=== PATIENT | male | born 1955 | race Caucasian/White ===

== ENCOUNTER 2017-04-21 12:26 | Inpatient (IN) | payer MEDICARE, OTHER ==
[2017-04-21] VITALS (9 sets, daily range): BP systolic 84–133; BP diastolic 52–69
[~2017-04-21] VITALS: Ht 170.2 cm; Wt 70.4 kg
[2017-04-21] MEDS: ipratropium/albuterol 3ml nebule NEB SCH ×3 (14:59→23:11)
[2017-04-21] MEDS: midazolam 100mg in NS 100ml 100 ML IV PRN (15:22)
[2017-04-21] MEDS: FENTANYL-0.9 % NACL/PF 100 ML IV PRN (15:22)
[2017-04-21 15:55] LABS: ABG BASE EXCESS 4.3 mmol/L (-2.0-3.0); ABG OXYGEN SATURATION 95.2 % (95-98); ABG PCO2 (T) 50.2 mmHg (35.0-48.0); ABG PH (T) 7.397 (7.350-7.450); ALLEN'S TEST Positive; FCOHb 0.3 % (0.5-1.5); FMetHb 0.1 % (0.3-1.12); FO2Hb 94.8 % (94-100); MINUTE VOLUME 11 L/min; PATIENT TEMPERATURE 37.5; PEEP 8 cm H2O; RESPIRATORY RATE 18 b/min; RESPIRATORY RATE (OBSERVED) 18 b/min; TIDAL VOLUME 550 mL; TOTAL HEMOGLOBIN 13.5 G/dl (14.0-18.0)
[2017-04-21] MEDS ORDERED: potassium Cl 20 mEq SR tablet PO PRN (16:00)
[2017-04-21] MEDS ORDERED: magnesium hydroxide 30ml (MOM) UD suspension PO PRN (16:00)
[2017-04-21] MEDS ORDERED: ondansetron/PF 4mg/2ml inj IV PRN (16:00)
[2017-04-21] MEDS ORDERED: morphine 2 MG/ML inj. syringe IV PRN ×2 (16:00)
[2017-04-21] MEDS ORDERED: Neutra Phos packet PO PRN (16:00)
[2017-04-21] MEDS ORDERED: magnesium 4gm in 100ml NS 100 ML IV PRN (16:00)
[2017-04-21] MEDS ORDERED: sodium phosphate inj. 15 MMOL in dextrose 5%-water 150 ML IV PRN (16:00)
[2017-04-21] MEDS ORDERED: magnesium Cl slow-release 64mg tablet PO PRN (16:00)
[2017-04-21] MEDS ORDERED: sodium phosphate inj. 30 MMOL in dextrose 5%-water 250 ML IV PRN (16:00)
[2017-04-21] MEDS ORDERED: magnesium 2GM in 50ml NS 50 ML IV PRN (16:00)
[2017-04-21] MEDS ORDERED: ipratropium/albuterol 3ml nebule NEB PRN (16:00)
[2017-04-21] MEDS ORDERED: acetaminophen 325mg tablet PO PRN ×2 (16:00)
[2017-04-21 16:40] LABS: OXYGEN SATURATION (MIXED VEN) 75.3 % (60-80); PO2 MIXED VENOUS (TEMP COR) 39.3 mmHg (35-46)
[2017-04-21 16:45] LABS: BASOPHILS % (AUTO) 0 % (0-1); EOSINOPHILS # (AUTO) 0.6 X10'3 (0-0.9); EOSINOPHILS % (AUTO) 3.6 % (0-6); HEMATOCRIT 39.4 % (42.0-52.0); LYMPHOCYTES # (AUTO) 0.6 X10'3 (1.1-4.8); LYMPHOCYTES % (AUTO) 3.7 % (21-51); MEAN CORPUSCULAR HEMOGLOBIN 31.5 PG (27.0-31.0); MEAN CORPUSCULAR HGB CONC 32.9 % (33.0-36.5); MEAN CORPUSCULAR VOLUME 95.7 FL (78-98); MEAN PLATELET VOLUME 9.7 FL (7.4-10.4); MONOCYTES # (AUTO) 1.4 X10'3 (0-0.9); MONOCYTES % (AUTO) 8.1 % (2-12); NEUTROPHILS % (AUTO) 84.6 % (42-75); PLATELET COUNT 161 X10'3 (140-440); RED BLOOD COUNT 4.11 X10'6 (4.70-6.10); RED CELL DISTRIBUTION WIDTH 15.7 % (11.5-14.5); WHITE BLOOD COUNT 17.7 X10'3 (4.5-11.0)
[2017-04-21 16:56] LABS: PARTIAL THROMBOPLASTIN TIME 29 SECONDS (22-32); PROTHROMBIN TIME 10.8 SECONDS (9.0-12.0)
[2017-04-21 17:13] LABS: CLARITY,URINE CLEAR (Clear); COLOR,URINE YELLOW (Yellow); GLUCOSE, URINE NEGATIVE (Neg); KETONES,URINE NEGATIVE (Neg); LEUKOCYTE ESTERASE ,URINE TRACE (Neg); NITRITES, URINE NEGATIVE (Neg); OCCULT BLOOD,URINE MODERATE (Neg); PH,URINE 5.5 (4.8-8.0); PROTEIN,URINE 30 mg/dl (Neg)
[2017-04-21 17:14] LABS: UA COLLECTION TYPE NON-SPECIFIED
[2017-04-21 17:14] LABS: ALANINE AMINOTRANSFERASE 68 U/L (12-78); ALBUMIN 1.6 G/DL (3.4-5.0); ALBUMIN/GLOBULIN RATIO 0.4 (1.1-1.5); ALKALINE PHOSPHATASE 268 IU/L (46-116); ANION GAP 7 (8-16); ASPARTATE AMINO TRANSFERASE 61 U/L (10-37); BILIRUBIN,TOTAL 4.3 MG/DL (0.1-1.0); BLOOD UREA NITROGEN 17 MG/DL (7-18); CHLORIDE 108 MMOL/L (99-107); GLUCOSE 92 MG/DL (70-104); LDL CHOLESTEROL 30 MG/DL (50-100); MAGNESIUM 1.8 MG/DL (1.5-2.4); PHOSPHORUS 4.8 MG/DL (2.3-4.5); POTASSIUM 3.8 MMOL/L (3.5-5.1); SODIUM 148 MMOL/L (135-145); TOTAL PROTEIN 5.2 G/DL (6.4-8.2); eGFR 41 ML/MIN
[2017-04-21 17:17] LABS: BACTERIA,URINE NONE SEEN /HPF (Neg); RENAL CELLS, URINE FEW /HPF; SQUAMOUS EPITHELIAL CELL,UR NONE SEEN /LPF (FEW); WBC CLUMPS,URINE FEW /HPF (NEGATIVE); WBC,URINE 0-4 /HPF (0-4)
[2017-04-21 17:24] LABS: VANCOMYCIN,TROUGH 21.5 UG/ML (6.0-14.0)
[2017-04-21] MEDS ORDERED: vancomycin inj 1,250 MG in normal saline 250ml IV soln 250 ML IV PRN (17:55)
[2017-04-21] MEDS ORDERED: vancomycin/NS 1 GM ADD-VANTAGE 250 ML IV SCH (20:00)
[2017-04-21] MEDS ORDERED: docusate sod 100mg capsule PO SCH (20:00)
[2017-04-21] MEDS: furosemide 40mg/4ml inj IV SCH (21:36)
[2017-04-21] MEDS: methylPREDNISolone sod succ/PF 40mg inj. IV SCH (21:36)
[2017-04-21] MEDS: docusate sodium 100mg/10ml UD cup PO SCH (21:36)
[2017-04-21] MEDS: piperacillin-tazo 2.25gm/50ml 50 ML IV SCH (21:36)
[2017-04-21] MEDS: heparin, porcine 5000 units/ml vial SQ SCH (21:38)
[2017-04-22] VITALS (24 sets, daily range): BP systolic 76–106; BP diastolic 47–70
[2017-04-22] MEDS: albumin (human) 25% 100 ML IV solution IV SCH ×2 (00:10→08:20)
[2017-04-22] MEDS: methylPREDNISolone sod succ/PF 40mg inj. IV SCH ×4 (02:00→21:13)
[2017-04-22] MEDS: piperacillin-tazo 2.25gm/50ml 50 ML IV SCH ×4 (02:00→21:13)
[2017-04-22] MEDS ORDERED: VANCOMYCIN LEVEL IV NR (03:00)
[2017-04-22] MEDS: ipratropium/albuterol 3ml nebule NEB SCH ×6 (03:01→22:22)
[2017-04-22 03:16] LABS: ABG BASE EXCESS 7.2 mmol/L (-2.0-3.0); ABG HCO3 32.4 mmol/L (22.0-26.0); ABG OXYGEN SATURATION 91.7 % (95-98); ALLEN'S TEST Positive; FCOHb 0.4 % (0.5-1.5); FMetHb 0.1 % (0.3-1.12); FO2Hb 91.2 % (94-100); MINUTE VOLUME 10 L/min; PATIENT TEMPERATURE 37.5; PEEP 8 cm H2O; RESPIRATORY RATE 18 b/min; RESPIRATORY RATE (OBSERVED) 18 b/min; TIDAL VOLUME 550 mL
[2017-04-22 04:00] LABS: BASOPHILS % (AUTO) 0 % (0-1); EOSINOPHILS # (AUTO) 0.3 X10'3 (0-0.9); EOSINOPHILS % (AUTO) 1.5 % (0-6); HEMATOCRIT 41.2 % (42.0-52.0); HEMOGLOBIN 13.3 g/dl (14.0-17.9); LYMPHOCYTES # (AUTO) 0.5 X10'3 (1.1-4.8); LYMPHOCYTES % (AUTO) 2.7 % (21-51); MEAN CORPUSCULAR HGB CONC 32.2 % (33.0-36.5); MEAN CORPUSCULAR VOLUME 96.3 FL (78-98); MEAN PLATELET VOLUME 9.9 FL (7.4-10.4); MONOCYTES # (AUTO) 0.3 X10'3 (0-0.9); NEUTROPHILS # (AUTO) 16.7 X10'3 (1.8-7.7); NEUTROPHILS % (AUTO) 93.8 % (42-75); PLATELET COUNT 174 X10'3 (140-440); RED BLOOD COUNT 4.28 X10'6 (4.70-6.10); RED CELL DISTRIBUTION WIDTH 15.4 % (11.5-14.5); WHITE BLOOD COUNT 17.8 X10'3 (4.5-11.0)
[2017-04-22 04:16] LABS: ALANINE AMINOTRANSFERASE 56 U/L (12-78); ALKALINE PHOSPHATASE 251 IU/L (46-116); ANION GAP 7 (8-16); ASPARTATE AMINO TRANSFERASE 47 U/L (10-37); BILIRUBIN,TOTAL 5.1 MG/DL (0.1-1.0); BLOOD UREA NITROGEN 20 MG/DL (7-18); CALCIUM 8.6 MG/DL (8.5-10.1); CHLORIDE 107 MMOL/L (99-107); GLUCOSE 120 MG/DL (70-104); MAGNESIUM 1.8 MG/DL (1.5-2.4); SODIUM 148 MMOL/L (135-145); TOTAL CARBON DIOXIDE 33.6 MMOL/L (24-32); VANCOMYCIN,RANDOM 18.3 UG/ML; eGFR 34 ML/MIN
[2017-04-22 04:37] LABS: ALBUMIN/GLOBULIN RATIO 0.5 (1.1-1.5); PHOSPHORUS 5.4 MG/DL (2.3-4.5); POTASSIUM 3.7 MMOL/L (3.5-5.1); TOTAL PROTEIN 5.8 G/DL (6.4-8.2)
[2017-04-22] MEDS: FENTANYL-0.9 % NACL/PF 100 ML IV PRN ×2 (05:39→23:37)
[2017-04-22] MEDS ORDERED: [UNRECOGNIZED DRUG - CODE] PO (06:42)
[2017-04-22] MEDS ORDERED: NYST50002 PO (06:43)
[2017-04-22] MEDS ORDERED: METO-292 PO (06:44)
[2017-04-22] MEDS ORDERED: PIPE3.376 IV (06:46)
[2017-04-22] MEDS ORDERED: FLUC10SU PO (06:46)
[2017-04-22] MEDS ORDERED: VANC1VIA21 IV (06:47)
[2017-04-22] MEDS ORDERED: LORA2VIA4 IJ (06:49)
[2017-04-22] MEDS ORDERED: PROP10VI (06:50)
[2017-04-22] MEDS ORDERED: ALBU18HF2 INH (06:51)
[2017-04-22] MEDS ORDERED: ATRIN IH (06:52)
[2017-04-22] MEDS ORDERED: pantoprazole 40 MG vial IV SCH (08:00)
[2017-04-22] MEDS: furosemide 40mg/4ml inj IV SCH ×2 (08:21→20:00)
[2017-04-22] MEDS: heparin, porcine 5000 units/ml vial SQ SCH (08:21)
[2017-04-22] MEDS: docusate sodium 100mg/10ml UD cup PO SCH ×2 (08:22→21:13)
[2017-04-22] MEDS ORDERED: heparin 10,000 units/1 ML INJ IV ONE (11:55)
[2017-04-22 12:27] LABS: PREALBUMIN 8.9 MG/DL (19-36)
[2017-04-22] MEDS: lactobacillus rhamnosus 10,000 MMU CELLS/CAPSULE PO SCH (17:34)
[2017-04-22] MEDS: famotidine/PF 10 mg/ml inj IV SCH (21:13)
[2017-04-22] MEDS: midazolam 100mg in NS 100ml 100 ML IV PRN (23:37)
[2017-04-23] VITALS (24 sets, daily range): BP systolic 93–125; BP diastolic 55–78
[2017-04-23] MEDS: piperacillin-tazo 2.25gm/50ml 50 ML IV SCH ×4 (01:47→19:53)
[2017-04-23] MEDS: methylPREDNISolone sod succ/PF 40mg inj. IV SCH ×4 (01:47→19:53)
[2017-04-23 01:51] LABS: ABG BASE EXCESS 8.7 mmol/L (-2.0-3.0); ABG HCO3 34.1 mmol/L (22.0-26.0); ABG OXYGEN SATURATION 95.2 % (95-98); ABG PCO2 (T) 48.2 mmHg (35.0-48.0); ABG PH (T) 7.465 (7.350-7.450); ABG PO2 (T) 71.7 mmHg (83-108); ALLEN'S TEST Positive; FMetHb 0.2 % (0.3-1.12); MINUTE VOLUME 11 L/min; PATIENT TEMPERATURE 36.1; PEEP 8 cm H2O; RESPIRATORY RATE 18 b/min; RESPIRATORY RATE (OBSERVED) 18 b/min; TIDAL VOLUME 550 mL; TOTAL HEMOGLOBIN 13.4 G/dl (14.0-18.0)
[2017-04-23] MEDS: ipratropium/albuterol 3ml nebule NEB SCH ×6 (02:59→22:31)
[2017-04-23] MEDS ORDERED: VANCOMYCIN LEVEL IV SCH (03:00)
[2017-04-23 03:38] LABS: BASOPHILS % (AUTO) 0 % (0-1); EOSINOPHILS # (AUTO) 0.1 X10'3 (0-0.9); EOSINOPHILS % (AUTO) 0.5 % (0-6); HEMATOCRIT 38.7 % (42.0-52.0); HEMOGLOBIN 12.5 g/dl (14.0-17.9); LYMPHOCYTES # (AUTO) 0.7 X10'3 (1.1-4.8); LYMPHOCYTES % (AUTO) 3.2 % (21-51); MEAN CORPUSCULAR HEMOGLOBIN 30.7 PG (27.0-31.0); MEAN CORPUSCULAR HGB CONC 32.4 % (33.0-36.5); MEAN CORPUSCULAR VOLUME 94.8 FL (78-98); MEAN PLATELET VOLUME 10.4 FL (7.4-10.4); MONOCYTES # (AUTO) 0.6 X10'3 (0-0.9); NEUTROPHILS # (AUTO) 19.1 X10'3 (1.8-7.7); NEUTROPHILS % (AUTO) 93.3 % (42-75); PLATELET COUNT 216 X10'3 (140-440); RED BLOOD COUNT 4.09 X10'6 (4.70-6.10); RED CELL DISTRIBUTION WIDTH 15.6 % (11.5-14.5); WHITE BLOOD COUNT 20.5 X10'3 (4.5-11.0)
[2017-04-23 03:56] LABS: ALANINE AMINOTRANSFERASE 48 U/L (12-78); ALBUMIN/GLOBULIN RATIO 0.5 (1.1-1.5); ALKALINE PHOSPHATASE 188 IU/L (46-116); ANION GAP 7 (8-16); ASPARTATE AMINO TRANSFERASE 28 U/L (10-37); BILIRUBIN,TOTAL 2.3 MG/DL (0.1-1.0); BLOOD UREA NITROGEN 36 MG/DL (7-18); BUN/CREATININE RATIO 18.9 (5.4-32.0); CALCIUM 8.7 MG/DL (8.5-10.1); CHLORIDE 104 MMOL/L (99-107); GLUCOSE 142 MG/DL (70-104); MAGNESIUM 2.3 MG/DL (1.5-2.4); PHOSPHORUS 5.3 MG/DL (2.3-4.5); SODIUM 147 MMOL/L (135-145); TOTAL CARBON DIOXIDE 35.6 MMOL/L (24-32); TOTAL PROTEIN 5.9 G/DL (6.4-8.2); eGFR 36 ML/MIN
[2017-04-23 03:59] LABS: POTASSIUM 2.9 MMOL/L (3.5-5.1)
[2017-04-23] MEDS: potassium Cl 20 mEq SR tablet PO PRN ×3 (04:17→12:09)
[2017-04-23 04:39] LABS: LARGE PLATELETS FEW; PLATELET ESTIMATE NORMAL
[2017-04-23 06:33] LABS: VANCOMYCIN,RANDOM 11.6 UG/ML
[2017-04-23] MEDS: furosemide 40mg/4ml inj IV SCH ×2 (07:42→19:53)
[2017-04-23] MEDS: lactobacillus rhamnosus 10,000 MMU CELLS/CAPSULE PO SCH ×2 (07:42→17:42)
[2017-04-23] MEDS: docusate sodium 100mg/10ml UD cup PO SCH ×2 (07:42→19:53)
[2017-04-23] MEDS: famotidine/PF 10 mg/ml inj IV SCH ×2 (07:45→19:53)
[2017-04-23] MEDS: bisacodyl 10mg suppository rectal RC PRN (10:44)
[2017-04-23] MEDS ORDERED: vancomycin inj 1,250 MG in normal saline 250ml IV soln 250 ML IV SCH (11:00)
[2017-04-23] MEDS: methylnaltrexone br 12mg/0.6ml inj***SubQ only SQ SCH (12:09)
[2017-04-23] MEDS: heparin 10,000 units/1 ML INJ IV PRN (16:30)
[2017-04-24] VITALS (24 sets, daily range): BP systolic 105–140; BP diastolic 64–85
[2017-04-24] MEDS: ipratropium/albuterol 3ml nebule NEB SCH ×6 (02:25→23:04)
[2017-04-24] MEDS: methylPREDNISolone sod succ/PF 40mg inj. IV SCH ×4 (02:42→21:39)
[2017-04-24] MEDS: piperacillin-tazo 2.25gm/50ml 50 ML IV SCH ×4 (02:42→21:39)
[2017-04-24] MEDS: FENTANYL-0.9 % NACL/PF 100 ML IV PRN (02:58)
[2017-04-24 03:36] LABS: ABG BASE EXCESS 7.2 mmol/L (-2.0-3.0); ABG HCO3 32.2 mmol/L (22.0-26.0); ABG OXYGEN SATURATION 95.3 % (95-98); ABG PCO2 (T) 47.6 mmHg (35.0-48.0); ABG PH (T) 7.448 (7.350-7.450); ABG PO2 (T) 77.3 mmHg (83-108); ALLEN'S TEST Positive; FCOHb 0.3 % (0.5-1.5); FMetHb 0.1 % (0.3-1.12); FO2Hb 94.9 % (94-100); MINUTE VOLUME 10 L/min; PATIENT TEMPERATURE 37.3; PEEP 8 cm H2O; RESPIRATORY RATE 16 b/min; RESPIRATORY RATE (OBSERVED) 16 b/min; TIDAL VOLUME 631 mL
[2017-04-24 04:13] LABS: BASOPHILS % (AUTO) 0 % (0-1); EOSINOPHILS # (AUTO) 0.3 X10'3 (0-0.9); EOSINOPHILS % (AUTO) 1.6 % (0-6); HEMATOCRIT 37.7 % (42.0-52.0); HEMOGLOBIN 12.4 g/dl (14.0-17.9); LYMPHOCYTES # (AUTO) 0.5 X10'3 (1.1-4.8); LYMPHOCYTES % (AUTO) 2.9 % (21-51); MEAN CORPUSCULAR HEMOGLOBIN 30.9 PG (27.0-31.0); MEAN CORPUSCULAR HGB CONC 32.9 % (33.0-36.5); MEAN CORPUSCULAR VOLUME 94.1 FL (78-98); MONOCYTES # (AUTO) 0.7 X10'3 (0-0.9); MONOCYTES % (AUTO) 3.6 % (2-12); NEUTROPHILS % (AUTO) 91.9 % (42-75); PLATELET COUNT 266 X10'3 (140-440); RED BLOOD COUNT 4.01 X10'6 (4.70-6.10); RED CELL DISTRIBUTION WIDTH 15.4 % (11.5-14.5); WHITE BLOOD COUNT 18.5 X10'3 (4.5-11.0)
[2017-04-24 04:36] LABS: ALANINE AMINOTRANSFERASE 63 U/L (12-78); ALBUMIN/GLOBULIN RATIO 0.5 (1.1-1.5); ALKALINE PHOSPHATASE 513 IU/L (46-116); ANION GAP 10 (8-16); ASPARTATE AMINO TRANSFERASE 59 U/L (10-37); BILIRUBIN,TOTAL 2.2 MG/DL (0.1-1.0); BLOOD UREA NITROGEN 62 MG/DL (7-18); BUN/CREATININE RATIO 28.2 (5.4-32.0); CALCIUM 8.7 MG/DL (8.5-10.1); CHLORIDE 104 MMOL/L (99-107); GLUCOSE 146 MG/DL (70-104); MAGNESIUM 2.3 MG/DL (1.5-2.4); PHOSPHORUS 4.1 MG/DL (2.3-4.5); POTASSIUM 3.5 MMOL/L (3.5-5.1); SODIUM 148 MMOL/L (135-145); TOTAL PROTEIN 6.1 G/DL (6.4-8.2); eGFR 31 ML/MIN
[2017-04-24] MEDS: heparin 10,000 units/1 ML INJ IV PRN (05:05)
[2017-04-24] MEDS: lactobacillus rhamnosus 10,000 MMU CELLS/CAPSULE PO SCH ×2 (07:30→17:05)
[2017-04-24] MEDS: furosemide 40mg/4ml inj IV SCH ×2 (08:50→21:38)
[2017-04-24] MEDS: famotidine/PF 10 mg/ml inj IV SCH ×2 (08:51→21:38)
[2017-04-24] MEDS ORDERED: metoclopramide 5 mg/ml inj IV PRN (09:15)
[2017-04-24] MEDS ORDERED: clindamycin 600mg/D5W 50ml 50 ML IV SCH (09:15)
[2017-04-24] MEDS: docusate sodium 100mg/10ml UD cup PO SCH ×2 (10:13→21:39)
[2017-04-24] MEDS: clindamycin 600mg/D5W 50ml 50 ML IV SCH ×2 (10:14→17:06)
[2017-04-24 10:45] LABS: OXYGEN SATURATION (MIXED VEN) 72.7 % (60-80); PO2 MIXED VENOUS (TEMP COR) 39.4 mmHg (35-46)
[2017-04-24] MEDS: metoclopramide 10mg/10 ml UD oral solution PO SCH ×2 (13:59→21:39)
[2017-04-24] MEDS ORDERED: metoclopramide 5 mg/ml inj IV SCH (14:00)
[2017-04-24] MEDS: midazolam 100mg in NS 100ml 100 ML IV PRN (18:08)
[2017-04-25] VITALS (23 sets, daily range): BP systolic 107–138; BP diastolic 63–80
[2017-04-25 02:45] LABS: ABG BASE EXCESS 12.1 mmol/L (-2.0-3.0); ABG HCO3 36.9 mmol/L (22.0-26.0); ABG PCO2 (T) 49.1 mmHg (35.0-48.0); ABG PH (T) 7.496 (7.350-7.450); ABG PO2 (T) 73.6 mmHg (83-108); ALLEN'S TEST Negative; FCOHb 0.3 % (0.5-1.5); FMetHb 0.1 % (0.3-1.12); FO2Hb 94.6 % (94-100); MINUTE VOLUME 9 L/min; PATIENT TEMPERATURE 37.4; PEEP 8 cm H2O; RESPIRATORY RATE 16 b/min; RESPIRATORY RATE (OBSERVED) 16 b/min; TIDAL VOLUME 550 mL; TOTAL HEMOGLOBIN 13.2 G/dl (14.0-18.0)
[2017-04-25] MEDS: ipratropium/albuterol 3ml nebule NEB SCH ×6 (02:47→23:02)
[2017-04-25] MEDS: methylPREDNISolone sod succ/PF 40mg inj. IV SCH ×4 (03:16→21:01)
[2017-04-25] MEDS: piperacillin-tazo 2.25gm/50ml 50 ML IV SCH ×4 (03:16→21:01)
[2017-04-25] MEDS: metoclopramide 10mg/10 ml UD oral solution PO SCH ×4 (03:16→21:02)
[2017-04-25 03:35] LABS: BASOPHILS % (AUTO) 0.1 % (0-1); EOSINOPHILS # (AUTO) 0.2 X10'3 (0-0.9); EOSINOPHILS % (AUTO) 1.4 % (0-6); HEMATOCRIT 38.9 % (42.0-52.0); HEMOGLOBIN 12.8 g/dl (14.0-17.9); LYMPHOCYTES # (AUTO) 0.6 X10'3 (1.1-4.8); LYMPHOCYTES % (AUTO) 4.2 % (21-51); MEAN CORPUSCULAR HEMOGLOBIN 30.9 PG (27.0-31.0); MEAN CORPUSCULAR VOLUME 93.6 FL (78-98); MEAN PLATELET VOLUME 9.9 FL (7.4-10.4); MONOCYTES # (AUTO) 0.7 X10'3 (0-0.9); NEUTROPHILS # (AUTO) 12.8 X10'3 (1.8-7.7); NEUTROPHILS % (AUTO) 89.3 % (42-75); PLATELET COUNT 292 X10'3 (140-440); RED BLOOD COUNT 4.15 X10'6 (4.70-6.10); RED CELL DISTRIBUTION WIDTH 15.5 % (11.5-14.5); WHITE BLOOD COUNT 14.4 X10'3 (4.5-11.0)
[2017-04-25 03:52] LABS: ALANINE AMINOTRANSFERASE 230 U/L (12-78); ALBUMIN 2.1 G/DL (3.4-5.0); ALKALINE PHOSPHATASE 602 IU/L (46-116); ANION GAP 8 (8-16); ASPARTATE AMINO TRANSFERASE 258 U/L (10-37); BILIRUBIN,TOTAL 3.9 MG/DL (0.1-1.0); BLOOD UREA NITROGEN 76 MG/DL (7-18); BUN/CREATININE RATIO 34.5 (5.4-32.0); CHLORIDE 103 MMOL/L (99-107); GLUCOSE 160 MG/DL (70-104); MAGNESIUM 2.4 MG/DL (1.5-2.4); PHOSPHORUS 3.3 MG/DL (2.3-4.5); POTASSIUM 3.5 MMOL/L (3.5-5.1); SODIUM 149 MMOL/L (135-145); TOTAL CARBON DIOXIDE 38.1 MMOL/L (24-32); TOTAL PROTEIN 6.3 G/DL (6.4-8.2); eGFR 31 ML/MIN
[2017-04-25 03:57] LABS: ALBUMIN/GLOBULIN RATIO 0.5 (1.1-1.5)
[2017-04-25] MEDS: famotidine/PF 10 mg/ml inj IV SCH ×2 (07:34→21:01)
[2017-04-25] MEDS: furosemide 40mg/4ml inj IV SCH ×2 (07:34→16:48)
[2017-04-25] MEDS: clindamycin 600mg/D5W 50ml 50 ML IV SCH ×2 (07:34)
[2017-04-25] MEDS: lactobacillus rhamnosus 10,000 MMU CELLS/CAPSULE PO SCH ×2 (07:34→16:48)
[2017-04-25] MEDS: methylnaltrexone br 12mg/0.6ml inj***SubQ only SQ SCH (07:35)
[2017-04-25] MEDS: docusate sodium 100mg/10ml UD cup PO SCH ×2 (07:35→21:01)
[2017-04-25] MEDS: FENTANYL-0.9 % NACL/PF 100 ML IV PRN (09:15)
[2017-04-25 09:52] LABS: LDH,BODY FLUID 169 U/L; TOTAL PROTEIN,BODY FLUID 2.6 G/DL
[2017-04-25 10:30] LABS: BFAPPEAR CLOUDY; LYMPHOCYTES,BODY FLUID 16 %; MONOCYTES,BODY FLUID 5 %; NEUTROPHILS,BODY FLUID 79 %
[2017-04-25 10:31] LABS: BF MESOTHELIAL CELLS FEW; BF RBC COUNT 101 /CU MM; BF WBC COUNT 164 /CU MM (0-1000); BFCOLOR OTHER; BFVOLUME 630 ML
[2017-04-25 10:36] LABS: BFSOURCE RIGHT PLEURAL FLD
[2017-04-25] MEDS: midazolam 100mg in NS 100ml 100 ML IV PRN (10:41)
[2017-04-25] MEDS ORDERED: dextrose 50%-water 50ml dispensing syringe IV PRN ×2 (14:55)
[2017-04-25] MEDS ORDERED: glucagon, human recombinant 1mg kit SUBCUT PRN (14:55)
[2017-04-25] MEDS ORDERED: MESSAGE TO PHARMACY PO ONE (14:55)
[2017-04-25] MEDS ORDERED: insulin Lispro (HumaLOG) vial - multi-dose SQ SCH (14:55)
[2017-04-25] MEDS ORDERED: dextrose ORAL solution 15 GM/59 ML bottle PO PRN ×2 (14:55)
[2017-04-25] MEDS: clindamycin 150mg capsule PO SCH (16:48)
[2017-04-25] MEDS: insulin regular, human vial - multi-dose SQ SCH (21:06)
[2017-04-25] MEDS: insulin glargine (Lantus) pen - multi-dose SQ SCH (21:07)
[2017-04-26] VITALS (24 sets, daily range): BP systolic 94–133; BP diastolic 56–82
[2017-04-26] MEDS: clindamycin 150mg capsule PO SCH ×3 (00:15→16:47)
[2017-04-26] MEDS: furosemide 40mg/4ml inj IV SCH ×3 (00:15→16:47)
[2017-04-26] MEDS: methylPREDNISolone sod succ/PF 40mg inj. IV SCH ×4 (01:50→19:32)
[2017-04-26] MEDS: metoclopramide 10mg/10 ml UD oral solution PO SCH ×4 (01:50→19:32)
[2017-04-26] MEDS: piperacillin-tazo 2.25gm/50ml 50 ML IV SCH ×4 (01:50→19:32)
[2017-04-26] MEDS: insulin regular, human vial - multi-dose SQ SCH ×4 (02:04→20:57)
[2017-04-26] MEDS: FENTANYL-0.9 % NACL/PF 100 ML IV PRN ×2 (02:36→23:37)
[2017-04-26 02:55] LABS: ABG BASE EXCESS 15.2 mmol/L (-2.0-3.0); ABG HCO3 39.6 mmol/L (22.0-26.0); ABG OXYGEN SATURATION 98.7 % (95-98); ABG PH (T) 7.544 (7.350-7.450); ALLEN'S TEST Positive; FMetHb 0.3 % (0.3-1.12); FO2Hb 98.4 % (94-100); MINUTE VOLUME 8 L/min; PEEP 10 cm H2O; RESPIRATORY RATE 16 b/min; RESPIRATORY RATE (OBSERVED) 16 b/min; TIDAL VOLUME 550 mL; TOTAL HEMOGLOBIN 13.8 G/dl (14.0-18.0)
[2017-04-26] MEDS: ipratropium/albuterol 3ml nebule NEB SCH ×6 (03:00→23:33)
[2017-04-26 04:17] LABS: BASOPHILS % (AUTO) 0 % (0-1); EOSINOPHILS # (AUTO) 0.3 X10'3 (0-0.9); EOSINOPHILS % (AUTO) 1.7 % (0-6); HEMATOCRIT 39.7 % (42.0-52.0); HEMOGLOBIN 13.1 g/dl (14.0-17.9); LYMPHOCYTES # (AUTO) 0.4 X10'3 (1.1-4.8); LYMPHOCYTES % (AUTO) 2.6 % (21-51); MEAN CORPUSCULAR HEMOGLOBIN 30.7 PG (27.0-31.0); MEAN CORPUSCULAR HGB CONC 32.9 % (33.0-36.5); MEAN CORPUSCULAR VOLUME 93.3 FL (78-98); MEAN PLATELET VOLUME 9.9 FL (7.4-10.4); MONOCYTES % (AUTO) 6.5 % (2-12); NEUTROPHILS # (AUTO) 14.3 X10'3 (1.8-7.7); NEUTROPHILS % (AUTO) 89.2 % (42-75); PLATELET COUNT 358 X10'3 (140-440); RED BLOOD COUNT 4.25 X10'6 (4.70-6.10); RED CELL DISTRIBUTION WIDTH 15.7 % (11.5-14.5)
[2017-04-26 04:30] LABS: ALANINE AMINOTRANSFERASE 359 U/L (12-78); ALBUMIN 2.1 G/DL (3.4-5.0); ALKALINE PHOSPHATASE 465 IU/L (46-116); ANION GAP 4 (8-16); ASPARTATE AMINO TRANSFERASE 257 U/L (10-37); BILIRUBIN,TOTAL 5.7 MG/DL (0.1-1.0); BLOOD UREA NITROGEN 82 MG/DL (7-18); CALCIUM 9.1 MG/DL (8.5-10.1); CHLORIDE 105 MMOL/L (99-107); GLUCOSE 129 MG/DL (70-104); MAGNESIUM 2.2 MG/DL (1.5-2.4); POTASSIUM 3.4 MMOL/L (3.5-5.1); PREALBUMIN 26.6 MG/DL (19-36); SODIUM 151 MMOL/L (135-145); eGFR 34 ML/MIN
[2017-04-26 04:45] LABS: ALBUMIN/GLOBULIN RATIO 0.5 (1.1-1.5); PHOSPHORUS 3.1 MG/DL (2.3-4.5); TOTAL PROTEIN 6.3 G/DL (6.4-8.2)
[2017-04-26 04:48] LABS: TOTAL CARBON DIOXIDE 41.7 MMOL/L (24-32)
[2017-04-26] MEDS: midazolam 100mg in NS 100ml 100 ML IV PRN ×2 (05:41→23:37)
[2017-04-26] MEDS ORDERED: potassium Cl oral solution 20 MEQ/15 ML PO PRN (08:23)
[2017-04-26] MEDS: lactobacillus rhamnosus 10,000 MMU CELLS/CAPSULE PO SCH ×2 (08:49→16:47)
[2017-04-26] MEDS: docusate sodium 100mg/10ml UD cup PO SCH ×2 (08:49→19:32)
[2017-04-26] MEDS: famotidine/PF 10 mg/ml inj IV SCH ×2 (08:49→19:32)
[2017-04-26] MEDS ORDERED: VANCOMYCIN LEVEL IV NR (10:30)
[2017-04-26] MEDS: potassium Cl oral solution 20 MEQ/15 ML PO PRN ×2 (12:29→16:46)
[2017-04-26] MEDS: insulin glargine (Lantus) pen - multi-dose SQ SCH (20:58)
[2017-04-27] VITALS (22 sets, daily range): BP systolic 92–128; BP diastolic 54–83
[2017-04-27] MEDS: furosemide 40mg/4ml inj IV SCH ×2 (00:53→08:06)
[2017-04-27] MEDS: clindamycin 150mg capsule PO SCH ×3 (00:54→16:00)
[2017-04-27 01:45] LABS: ALANINE AMINOTRANSFERASE 317 U/L (12-78); ALBUMIN 2.1 G/DL (3.4-5.0); ALBUMIN/GLOBULIN RATIO 0.5 (1.1-1.5); ALKALINE PHOSPHATASE 386 IU/L (46-116); ANION GAP 5 (8-16); ASPARTATE AMINO TRANSFERASE 117 U/L (10-37); BILIRUBIN,TOTAL 2.7 MG/DL (0.1-1.0); BLOOD UREA NITROGEN 93 MG/DL (7-18); BUN/CREATININE RATIO 42.3 (5.4-32.0); CALCIUM 9.1 MG/DL (8.5-10.1); CHLORIDE 104 MMOL/L (99-107); GLUCOSE 115 MG/DL (70-104); MAGNESIUM 2.3 MG/DL (1.5-2.4); PHOSPHORUS 3.3 MG/DL (2.3-4.5); POTASSIUM 3.8 MMOL/L (3.5-5.1); SODIUM 150 MMOL/L (135-145); TOTAL PROTEIN 6.3 G/DL (6.4-8.2); eGFR 31 ML/MIN
[2017-04-27] MEDS: methylPREDNISolone sod succ/PF 40mg inj. IV SCH ×4 (02:22→19:47)
[2017-04-27] MEDS: metoclopramide 10mg/10 ml UD oral solution PO SCH ×4 (02:23→19:48)
[2017-04-27] MEDS: piperacillin-tazo 2.25gm/50ml 50 ML IV SCH ×4 (02:23→19:47)
[2017-04-27 02:42] LABS: BASOPHILS % (AUTO) 0 % (0-1); EOSINOPHILS # (AUTO) 0.2 X10'3 (0-0.9); EOSINOPHILS % (AUTO) 0.9 % (0-6); HEMATOCRIT 40.1 % (42.0-52.0); HEMOGLOBIN 13.4 g/dl (14.0-17.9); LYMPHOCYTES # (AUTO) 0.5 X10'3 (1.1-4.8); LYMPHOCYTES % (AUTO) 2.6 % (21-51); MEAN CORPUSCULAR HEMOGLOBIN 30.9 PG (27.0-31.0); MEAN CORPUSCULAR HGB CONC 33.3 % (33.0-36.5); MEAN CORPUSCULAR VOLUME 92.8 FL (78-98); MEAN PLATELET VOLUME 10.2 FL (7.4-10.4); MONOCYTES % (AUTO) 5.6 % (2-12); NEUTROPHILS # (AUTO) 16.6 X10'3 (1.8-7.7); NEUTROPHILS % (AUTO) 90.9 % (42-75); PLATELET COUNT 374 X10'3 (140-440); RED BLOOD COUNT 4.32 X10'6 (4.70-6.10); RED CELL DISTRIBUTION WIDTH 15.3 % (11.5-14.5); WHITE BLOOD COUNT 18.3 X10'3 (4.5-11.0)
[2017-04-27 03:05] LABS: ABG BASE EXCESS 13.1 mmol/L (-2.0-3.0); ABG HCO3 36.6 mmol/L (22.0-26.0); ABG OXYGEN SATURATION 89.2 % (95-98); ABG PCO2 (T) 42.9 mmHg (35.0-48.0); ABG PH (T) 7.551 (7.350-7.450); ABG PO2 (T) 56.4 mmHg (83-108); ALLEN'S TEST Positive; FCOHb 0.7 % (0.5-1.5); FMetHb 0.1 % (0.3-1.12); FO2Hb 88.5 % (94-100); MINUTE VOLUME 9 L/min; PATIENT TEMPERATURE 37.7; PEEP 5 cm H2O; RESPIRATORY RATE 16 b/min; RESPIRATORY RATE (OBSERVED) 16 b/min; TIDAL VOLUME 550 mL; TOTAL HEMOGLOBIN 13.8 G/dl (14.0-18.0)
[2017-04-27] MEDS: ipratropium/albuterol 3ml nebule NEB SCH ×6 (03:09→23:02)
[2017-04-27] MEDS: insulin regular, human vial - multi-dose SQ SCH ×2 (03:38→08:28)
[2017-04-27] MEDS: methylnaltrexone br 12mg/0.6ml inj***SubQ only SQ SCH (08:06)
[2017-04-27] MEDS: docusate sodium 100mg/10ml UD cup PO SCH ×2 (08:06→19:48)
[2017-04-27] MEDS: famotidine/PF 10 mg/ml inj IV SCH ×2 (08:06→19:47)
[2017-04-27] MEDS: lactobacillus rhamnosus 10,000 MMU CELLS/CAPSULE PO SCH ×2 (08:06→16:20)
[2017-04-27] MEDS: bisacodyl 10mg suppository rectal RC PRN (16:41)
[2017-04-27] MEDS: insulin glargine (Lantus) pen - multi-dose SQ SCH (21:00)
[2017-04-28] VITALS (24 sets, daily range): BP systolic 110–147; BP diastolic 67–94
[2017-04-28] MEDS: metoclopramide 10mg/10 ml UD oral solution PO SCH ×4 (02:00→21:43)
[2017-04-28] MEDS: methylPREDNISolone sod succ/PF 40mg inj. IV SCH ×4 (02:04→21:43)
[2017-04-28] MEDS: piperacillin-tazo 2.25gm/50ml 50 ML IV SCH ×4 (02:04→21:43)
[2017-04-28] MEDS: ipratropium/albuterol 3ml nebule NEB SCH ×6 (02:59→23:27)
[2017-04-28 03:08] LABS: BASOPHILS % (AUTO) 0 % (0-1); EOSINOPHILS # (AUTO) 0.3 X10'3 (0-0.9); EOSINOPHILS % (AUTO) 1.7 % (0-6); HEMATOCRIT 42.5 % (42.0-52.0); HEMOGLOBIN 13.8 g/dl (14.0-17.9); LYMPHOCYTES # (AUTO) 0.8 X10'3 (1.1-4.8); MEAN CORPUSCULAR HEMOGLOBIN 30.4 PG (27.0-31.0); MEAN CORPUSCULAR HGB CONC 32.5 % (33.0-36.5); MEAN CORPUSCULAR VOLUME 93.8 FL (78-98); MEAN PLATELET VOLUME 9.3 FL (7.4-10.4); MONOCYTES # (AUTO) 0.8 X10'3 (0-0.9); MONOCYTES % (AUTO) 4.3 % (2-12); NEUTROPHILS # (AUTO) 17.7 X10'3 (1.8-7.7); PLATELET COUNT 417 X10'3 (140-440); RED BLOOD COUNT 4.53 X10'6 (4.70-6.10); RED CELL DISTRIBUTION WIDTH 16.1 % (11.5-14.5); WHITE BLOOD COUNT 19.7 X10'3 (4.5-11.0)
[2017-04-28 03:25] LABS: ALANINE AMINOTRANSFERASE 225 U/L (12-78); ALBUMIN 2.2 G/DL (3.4-5.0); ALBUMIN/GLOBULIN RATIO 0.6 (1.1-1.5); ALKALINE PHOSPHATASE 296 IU/L (46-116); ANION GAP 4 (8-16); ASPARTATE AMINO TRANSFERASE 52 U/L (10-37); BLOOD UREA NITROGEN 90 MG/DL (7-18); BUN/CREATININE RATIO 42.9 (5.4-32.0); CALCIUM 9.1 MG/DL (8.5-10.1); CHLORIDE 106 MMOL/L (99-107); GLUCOSE 167 MG/DL (70-104); MAGNESIUM 2.8 MG/DL (1.5-2.4); PHOSPHORUS 5.4 MG/DL (2.3-4.5); POTASSIUM 3.6 MMOL/L (3.5-5.1); TOTAL PROTEIN 6.2 G/DL (6.4-8.2); eGFR 32 ML/MIN
[2017-04-28 03:28] LABS: SODIUM 155 MMOL/L (135-145); TOTAL CARBON DIOXIDE 44.8 MMOL/L (24-32)
[2017-04-28] MEDS: famotidine/PF 10 mg/ml inj IV SCH ×2 (08:23→21:43)
[2017-04-28] MEDS: lactobacillus rhamnosus 10,000 MMU CELLS/CAPSULE PO SCH ×2 (08:23→17:43)
[2017-04-28] MEDS: clindamycin 150mg capsule PO SCH ×3 (08:23→17:43)
[2017-04-28] MEDS: docusate sodium 100mg/10ml UD cup PO SCH ×2 (08:23→21:43)
[2017-04-28] MEDS: insulin glargine (Lantus) pen - multi-dose SQ SCH (21:00)
[2017-04-29] VITALS (24 sets, daily range): BP systolic 92–145; BP diastolic 59–91
[2017-04-29] MEDS: methylPREDNISolone sod succ/PF 40mg inj. IV SCH ×2 (02:26→07:51)
[2017-04-29] MEDS: metoclopramide 10mg/10 ml UD oral solution PO SCH ×4 (02:27→20:54)
[2017-04-29] MEDS: piperacillin-tazo 2.25gm/50ml 50 ML IV SCH ×4 (02:27→20:54)
[2017-04-29] MEDS: ipratropium/albuterol 3ml nebule NEB SCH ×6 (03:52→23:43)
[2017-04-29 05:47] LABS: BASOPHILS % (AUTO) 0 % (0-1); EOSINOPHILS # (AUTO) 0.2 X10'3 (0-0.9); EOSINOPHILS % (AUTO) 1.4 % (0-6); HEMATOCRIT 42.4 % (42.0-52.0); HEMOGLOBIN 14.1 g/dl (14.0-17.9); LYMPHOCYTES # (AUTO) 0.7 X10'3 (1.1-4.8); MEAN CORPUSCULAR HEMOGLOBIN 30.8 PG (27.0-31.0); MEAN CORPUSCULAR HGB CONC 33.4 % (33.0-36.5); MEAN CORPUSCULAR VOLUME 92.3 FL (78-98); MEAN PLATELET VOLUME 9.1 FL (7.4-10.4); MONOCYTES # (AUTO) 0.9 X10'3 (0-0.9); NEUTROPHILS # (AUTO) 15.3 X10'3 (1.8-7.7); NEUTROPHILS % (AUTO) 89.6 % (42-75); PLATELET COUNT 465 X10'3 (140-440); RED BLOOD COUNT 4.59 X10'6 (4.70-6.10); RED CELL DISTRIBUTION WIDTH 16.4 % (11.5-14.5)
[2017-04-29 06:04] LABS: ALANINE AMINOTRANSFERASE 189 U/L (12-78); ALBUMIN 2.2 G/DL (3.4-5.0); ALBUMIN/GLOBULIN RATIO 0.5 (1.1-1.5); ALKALINE PHOSPHATASE 248 IU/L (46-116); ANION GAP 8 (8-16); ASPARTATE AMINO TRANSFERASE 43 U/L (10-37); BILIRUBIN,TOTAL 1.7 MG/DL (0.1-1.0); BLOOD UREA NITROGEN 62 MG/DL (7-18); BUN/CREATININE RATIO 39.7 (5.4-32.0); CALCIUM 9.1 MG/DL (8.5-10.1); CHLORIDE 107 MMOL/L (99-107); CREATININE 1.56 MG/DL (0.60-1.10); GLUCOSE 185 MG/DL (70-104); MAGNESIUM 2.8 MG/DL (1.5-2.4); PHOSPHORUS 3.3 MG/DL (2.3-4.5); POTASSIUM 3.5 MMOL/L (3.5-5.1); PREALBUMIN 29.2 MG/DL (19-36); TOTAL PROTEIN 6.4 G/DL (6.4-8.2); eGFR 46 ML/MIN
[2017-04-29 06:12] LABS: SODIUM 157 MMOL/L (135-145); TOTAL CARBON DIOXIDE 41.9 MMOL/L (24-32)
[2017-04-29] MEDS: lactobacillus rhamnosus 10,000 MMU CELLS/CAPSULE PO SCH ×2 (07:50→16:52)
[2017-04-29] MEDS: famotidine/PF 10 mg/ml inj IV SCH ×2 (07:51→20:54)
[2017-04-29] MEDS: docusate sodium 100mg/10ml UD cup PO SCH ×2 (07:51→20:00)
[2017-04-29] MEDS: clindamycin 150mg capsule PO SCH ×3 (07:51→16:52)
[2017-04-29] MEDS: methylnaltrexone br 12mg/0.6ml inj***SubQ only SQ SCH (08:00)
[2017-04-29] MEDS: dextrose 5%-water 1,000 ML IV SCH (09:41)
[2017-04-29] MEDS: Protein Shake (high protein) 240ml (8oz) cup PO SCH ×2 (13:00→18:40)
[2017-04-29 15:39] LABS: INR 1.1 INR; PROTHROMBIN TIME 11.3 SECONDS (9.0-12.0)
[2017-04-29] MEDS: insulin glargine (Lantus) pen - multi-dose SQ SCH (20:56)
[2017-04-29] MEDS ORDERED: warfarin 5mg tablet PO SCH (21:00)
[2017-04-30] VITALS (15 sets, daily range): BP systolic 68–131; BP diastolic 45–103
[2017-04-30] MEDS: clindamycin 150mg capsule PO SCH ×2 (01:00→08:31)
[2017-04-30] MEDS: metoclopramide 10mg/10 ml UD oral solution PO SCH ×2 (02:00→08:00)
[2017-04-30] MEDS: piperacillin-tazo 2.25gm/50ml 50 ML IV SCH ×3 (02:58→14:26)
[2017-04-30] MEDS: ipratropium/albuterol 3ml nebule NEB SCH ×2 (03:00→07:06)
[2017-04-30 04:23] LABS: BASOPHILS % (AUTO) 0.1 % (0-1); EOSINOPHILS # (AUTO) 0.6 X10'3 (0-0.9); EOSINOPHILS % (AUTO) 3.5 % (0-6); HEMATOCRIT 40.5 % (42.0-52.0); HEMOGLOBIN 13.3 g/dl (14.0-17.9); LYMPHOCYTES # (AUTO) 1.5 X10'3 (1.1-4.8); LYMPHOCYTES % (AUTO) 8.3 % (21-51); MEAN CORPUSCULAR HEMOGLOBIN 30.5 PG (27.0-31.0); MEAN CORPUSCULAR HGB CONC 32.7 % (33.0-36.5); MEAN CORPUSCULAR VOLUME 93.3 FL (78-98); MEAN PLATELET VOLUME 9.3 FL (7.4-10.4); MONOCYTES # (AUTO) 1.7 X10'3 (0-0.9); MONOCYTES % (AUTO) 9.3 % (2-12); NEUTROPHILS % (AUTO) 78.8 % (42-75); PLATELET COUNT 452 X10'3 (140-440); RED BLOOD COUNT 4.34 X10'6 (4.70-6.10); RED CELL DISTRIBUTION WIDTH 15.7 % (11.5-14.5); WHITE BLOOD COUNT 17.8 X10'3 (4.5-11.0)
[2017-04-30 04:35] LABS: INR 1.1 INR; PROTHROMBIN TIME 11.2 SECONDS (9.0-12.0)
[2017-04-30 04:40] LABS: ALANINE AMINOTRANSFERASE 168 U/L (12-78); ALBUMIN 2.1 G/DL (3.4-5.0); ALBUMIN/GLOBULIN RATIO 0.6 (1.1-1.5); ALKALINE PHOSPHATASE 207 IU/L (46-116); ANION GAP 4 (8-16); ASPARTATE AMINO TRANSFERASE 44 U/L (10-37); BILIRUBIN,TOTAL 1.6 MG/DL (0.1-1.0); BLOOD UREA NITROGEN 49 MG/DL (7-18); BUN/CREATININE RATIO 32.9 (5.4-32.0); CALCIUM 8.6 MG/DL (8.5-10.1); CHLORIDE 101 MMOL/L (99-107); CREATININE 1.49 MG/DL (0.60-1.10); GLUCOSE 100 MG/DL (70-104); MAGNESIUM 2.3 MG/DL (1.5-2.4); PHOSPHORUS 3.2 MG/DL (2.3-4.5); POTASSIUM 3.7 MMOL/L (3.5-5.1); SODIUM 144 MMOL/L (135-145); TOTAL CARBON DIOXIDE 38.8 MMOL/L (24-32); TOTAL PROTEIN 5.8 G/DL (6.4-8.2); eGFR 48 ML/MIN
[2017-04-30] MEDS: HYDROmorphone inj. 0.5 MG/0.5 ML DISP.SYRIN IV PRN ×2 (05:28→08:51)
[2017-04-30] MEDS: dextrose 5%-water 1,000 ML IV SCH (05:56)
[2017-04-30] MEDS: Protein Shake (high protein) 240ml (8oz) cup PO SCH (08:00)
[2017-04-30] MEDS: docusate sodium 100mg/10ml UD cup PO SCH (08:00)
[2017-04-30] MEDS: famotidine/PF 10 mg/ml inj IV SCH (08:00)
[2017-04-30] MEDS: lactobacillus rhamnosus 10,000 MMU CELLS/CAPSULE PO SCH (08:31)
[2017-04-30] MEDS ORDERED: ipratropium/albuterol 3ml nebule NEB PRN (10:40)
[2017-04-30] MEDS ORDERED: FAMO-128 PO (11:02)
[2017-04-30] MEDS ORDERED: PIPE2.2535 IV (11:02)
[2017-04-30] MEDS ORDERED: CLE150C PO (11:02)
[2017-04-30] MEDS ORDERED: [UNRECOGNIZED DRUG - CODE] IV (11:02)
[2017-04-30] MEDS ORDERED: COU5T PO (11:02)
[2017-04-30] MEDS ORDERED: docusate sodium 100mg/10ml UD cup PO PRN (13:45)
[2017-04-30] MEDS ORDERED: ipratropium/albuterol 3ml nebule NEB SCH (15:00)
== END 2017-04-30 15:20 | DRG 870 ==
LOC: CICU 2S 14:45
PROVIDERS: ADMIT Internal Medicine Critical Care Medicine; ATTEND Internal Medicine Critical Care Medicine
PROC: 5A1955Z Respiratory Ventilation, Greater than 96 Consecutive Hours (ICD-10-PCS; principal; 2017-04-21)
PROC: 02HV33Z Insertion of Infusion Device into Superior Vena Cava, Percutaneous Approach (ICD-10-PCS; 2017-04-22)
PROC: B548ZZA Ultrasonography of Superior Vena Cava, Guidance (ICD-10-PCS; 2017-04-22)
PROC: 0W993ZZ Drainage of Right Pleural Cavity, Percutaneous Approach (ICD-10-PCS; 2017-04-25)
DX: A41.9 Sepsis, unspecified organism (principal); J96.20 Acute and chronic respiratory failure, unspecified whether with hypoxia or hypercapnia; Z99.11 Dependence on respirator [ventilator] status; J18.9 Pneumonia, unspecified organism; J44.0 Chronic obstructive pulmonary disease with (acute) lower respiratory infection; N17.9 Acute kidney failure, unspecified; I82.409 Acute embolism and thrombosis of unspecified deep veins of unspecified lower extremity; L89.150 Pressure ulcer of sacral region, unstageable; N18.3 Chronic kidney disease, stage 3 (moderate); J44.1 Chronic obstructive pulmonary disease with (acute) exacerbation; L03.116 Cellulitis of left lower limb; E87.2 Acidosis; L89.629 Pressure ulcer of left heel, unspecified stage; I50.9 Heart failure, unspecified; F41.9 Anxiety disorder, unspecified; F17.210 Nicotine dependence, cigarettes, uncomplicated; Z91.048 Other nonmedicinal substance allergy status; Z79.899 Other long term (current) drug therapy
CPT/HCPCS: 36415; 36569; 36600; 71045; 71046; 76937; 80053; 80202; 81001; 82803; 82810; 82948; 83036; 83605; 83615; 83721; 83735; 83880; 83986; 84100; 84132; 84134; 84145; 84157; 84443; 85018; 85025; 85610; 85730; 87040; 87070; 87075; 87088; 87502; 87503; 88108; 88305; 89051; 92616; 93306; 93970; 94002; 94003; 94640; 94760; 97110; 97162; 97530; A4315; A4649; A6212; A6213; A6222; A6223; A6253; A6255; A6446; A6449; A7015; C9113; J1170; J1644; J1815; J1940; J2250; J2543; J2920; J3370; J3490; J7030; J7070; J8597; P9047

== ENCOUNTER 2017-05-02 07:27 | Inpatient (IN) | payer MEDICARE, OTHER ==
[2017-05-02] VITALS (24 sets, daily range): BP systolic 47–155; BP diastolic 33–79
[~2017-05-02] VITALS: Ht 172.7 cm; Wt 77.0 kg
[~2017-05-02 07:27] MED LIST: ALBU18HF2 INH; ATRIN IH; CLE150C PO; COU5T PO; FAMO-128 PO; PIPE2.2535 IV; [UNRECOGNIZED DRUG - CODE] IV
[2017-05-02] MEDS ORDERED: ondansetron/PF 4mg/2ml inj IV ONE (07:35)
[2017-05-02] MEDS ORDERED: normal saline 1000ML IV soln IVB ONE ×2 (07:35)
[2017-05-02 07:47] LABS: BASOPHILS % (AUTO) 0 % (0-1); EOSINOPHILS # (AUTO) 0.3 X10'3 (0-0.9); EOSINOPHILS % (AUTO) 1.1 % (0-6); LYMPHOCYTES # (AUTO) 1.1 X10'3 (1.1-4.8); LYMPHOCYTES % (AUTO) 4.5 % (21-51); MEAN CORPUSCULAR HEMOGLOBIN 30.1 PG (27.0-31.0); MEAN CORPUSCULAR HGB CONC 32.6 % (33.0-36.5); MEAN CORPUSCULAR VOLUME 92.3 FL (78-98); MEAN PLATELET VOLUME 9.6 FL (7.4-10.4); MONOCYTES # (AUTO) 1.7 X10'3 (0-0.9); NEUTROPHILS # (AUTO) 21.8 X10'3 (1.8-7.7); NEUTROPHILS % (AUTO) 87.4 % (42-75); PLATELET COUNT 317 X10'3 (140-440); RED CELL DISTRIBUTION WIDTH 15.9 % (11.5-14.5)
[2017-05-02 07:50] LABS: HEMATOCRIT 14.8 % (42.0-52.0); HEMOGLOBIN 4.8 g/dl (14.0-17.9)
[2017-05-02] MEDS ORDERED: tranexamic acid inj. 750 MG in normal saline 100ml IV soln 92.5 ML IV ONE (07:55)
[2017-05-02] MEDS ORDERED: HUMAN PROTHROMBIN COMPLX(PCC) 500 UNIT KIT IV ONE (08:00)
[2017-05-02 08:13] LABS: ALANINE AMINOTRANSFERASE 330 U/L (12-78); ALBUMIN 1.5 G/DL (3.4-5.0); ALBUMIN/GLOBULIN RATIO 0.5 (1.1-1.5); ALKALINE PHOSPHATASE 118 IU/L (46-116); ANION GAP 17 (8-16); ASPARTATE AMINO TRANSFERASE 295 U/L (10-37); BILIRUBIN,TOTAL 1.4 MG/DL (0.1-1.0); BLOOD UREA NITROGEN 47 MG/DL (7-18); CALCIUM 7.3 MG/DL (8.5-10.1); CHLORIDE 100 MMOL/L (99-107); CREATININE 2.76 MG/DL (0.60-1.10); GLUCOSE 102 MG/DL (70-104); LIPASE 147 U/L (73-393); POTASSIUM 4.6 MMOL/L (3.5-5.1); SODIUM 142 MMOL/L (135-145); TOTAL CARBON DIOXIDE 24.9 MMOL/L (24-32); TOTAL PROTEIN 4.5 G/DL (6.4-8.2); eGFR 24 ML/MIN
[2017-05-02] MEDS ORDERED: succinylcholine 20mg/ml inj IV ONE ×2 (08:13→09:50)
[2017-05-02 08:15] LABS: INR 4.8 INR
[2017-05-02 08:16] LABS: PARTIAL THROMBOPLASTIN TIME 93 SECONDS (22-32)
[2017-05-02] MEDS ORDERED: acetaminophen 325mg tablet PO PRN ×4 (08:30→17:40)
[2017-05-02] MEDS ORDERED: ondansetron/PF 4mg/2ml inj IV PRN ×2 (08:30→17:40)
[2017-05-02] MEDS ORDERED: magnesium hydroxide 30ml (MOM) UD suspension PO PRN ×2 (08:30→17:40)
[2017-05-02] MEDS ORDERED: morphine 2 MG/ML inj. syringe IV PRN (08:30)
[2017-05-02] MEDS ORDERED: morphine 5 MG/ML injection IV PRN ×4 (08:30→17:40)
[2017-05-02] MEDS ORDERED: potassium Cl 20 mEq SR tablet PO PRN ×4 (08:30→17:40)
[2017-05-02 08:55] LABS: ABG BASE EXCESS -7.2 mmol/L (-2.0-3.0); ABG HCO3 19.2 mmol/L (22.0-26.0); ABG OXYGEN SATURATION 95.7 % (95-98); ABG PCO2 (T) 43.6 mmHg (35.0-48.0); ABG PH (T) 7.262 (7.350-7.450); ABG PO2 (T) 92.7 mmHg (83-108); FMetHb 0.2 % (0.3-1.12); FO2Hb 94.6 % (94-100); MINUTE VOLUME 12 L/min; PEEP 5 cm H2O; RESPIRATORY RATE 16 b/min; RESPIRATORY RATE (OBSERVED) 20 b/min; TIDAL VOLUME 550 mL; TOTAL HEMOGLOBIN 6.7 G/dl (14.0-18.0)
[2017-05-02] MEDS ORDERED: MIDAZolam 5mg/ml 2ml vial IV ONE (09:15)
[2017-05-02] MEDS ORDERED: etomidate 2mg/ml inj. IV ONE (09:50)
[2017-05-02] MEDS: pantoprazole 40MG/NS 100ML BAG 100 ML IV SCH ×4 (10:20→23:37)
[2017-05-02 11:55] LABS: HEMATOCRIT 27.4 % (42.0-52.0); HEMOGLOBIN 9.3 g/dl (14.0-17.9); MEAN CORPUSCULAR HEMOGLOBIN 30.3 PG (27.0-31.0); MEAN CORPUSCULAR HGB CONC 33.9 % (33.0-36.5); MEAN CORPUSCULAR VOLUME 89.6 FL (78-98); MEAN PLATELET VOLUME 9.6 FL (7.4-10.4); PLATELET COUNT 241 X10'3 (140-440); RED BLOOD COUNT 3.06 X10'6 (4.70-6.10); RED CELL DISTRIBUTION WIDTH 15.3 % (11.5-14.5)
[2017-05-02 11:57] LABS: WHITE BLOOD COUNT 48.7 X10'3 (4.5-11.0)
[2017-05-02 12:08] LABS: INR 1.7 INR; PARTIAL THROMBOPLASTIN TIME 50 SECONDS (22-32); PROTHROMBIN TIME 17.6 SECONDS (9.0-12.0)
[2017-05-02] MEDS ORDERED: normal saline 1000ml 1,000 ML IV ONE (13:10)
[2017-05-02] MEDS: NORepinephrine 8mg/ 250ml NS 250 ML IV SCH ×3 (13:29→22:09)
[2017-05-02] MEDS: piperacillin-tazo 2.25gm/50ml 50 ML IV SCH ×2 (14:46→23:36)
[2017-05-02 15:51] LABS: HEMATOCRIT 25.4 % (42.0-52.0); HEMOGLOBIN 8.7 g/dl (14.0-17.9); MEAN CORPUSCULAR HEMOGLOBIN 30.4 PG (27.0-31.0); MEAN CORPUSCULAR HGB CONC 34.1 % (33.0-36.5); MEAN PLATELET VOLUME 10.1 FL (7.4-10.4); PLATELET COUNT 240 X10'3 (140-440); RED BLOOD COUNT 2.86 X10'6 (4.70-6.10); RED CELL DISTRIBUTION WIDTH 15.4 % (11.5-14.5)
[2017-05-02 15:53] LABS: WHITE BLOOD COUNT 42.7 X10'3 (4.5-11.0)
[2017-05-02] MEDS ORDERED: sodium phosphate inj. 15 MMOL in dextrose 5%-water 150 ML IV PRN (17:40)
[2017-05-02] MEDS ORDERED: metoclopramide 5 mg/ml inj IV PRN (17:40)
[2017-05-02] MEDS ORDERED: magnesium 2GM in 50ml NS 50 ML IV PRN (17:40)
[2017-05-02] MEDS ORDERED: magnesium Cl slow-release 64mg tablet PO PRN (17:40)
[2017-05-02] MEDS ORDERED: magnesium 4gm in 100ml NS 100 ML IV PRN (17:40)
[2017-05-02] MEDS ORDERED: Neutra Phos packet PO PRN (17:40)
[2017-05-02] MEDS ORDERED: K, MAG and/or Phos replacement - Verify level? MC SCH (17:40)
[2017-05-02] MEDS ORDERED: pantoprazole 40 MG vial IV SCH (17:40)
[2017-05-02] MEDS ORDERED: sodium phosphate inj. 30 MMOL in dextrose 5%-water 250 ML IV PRN (17:40)
[2017-05-02] MEDS ORDERED: fentaNYL/PF 50MCG/1 ML 2ML syringe ONE (17:44)
[2017-05-02] MEDS ORDERED: vasopressin inj. 60 UNIT in normal saline 100ml IV soln 97 ML IV SCH (17:50)
[2017-05-02] MEDS ORDERED: midazolam 100mg in NS 100ml 100 ML IV PRN (17:55)
[2017-05-02] MEDS ORDERED: FENTANYL-0.9 % NACL/PF 100 ML IV PRN (17:55)
[2017-05-02] MEDS ORDERED: hydrocortisone sod succ/PF 100mg/2ml inj. IV SCH (18:45)
[2017-05-02] MEDS ORDERED: dextrose 50%-water 50ml dispensing syringe IV ONE (19:30)
[2017-05-02] MEDS ORDERED: dextrose 50%-water 50ml dispensing syringe IV PRN (19:40)
[2017-05-02 19:54] LABS: BASOPHILS % (AUTO) 0.1 % (0-1); EOSINOPHILS # (AUTO) 0.3 X10'3 (0-0.9); EOSINOPHILS % (AUTO) 0.8 % (0-6); HEMOGLOBIN 7.3 g/dl (14.0-17.9); LYMPHOCYTES # (AUTO) 1.1 X10'3 (1.1-4.8); LYMPHOCYTES % (AUTO) 3.6 % (21-51); MEAN CORPUSCULAR HEMOGLOBIN 30.3 PG (27.0-31.0); MEAN CORPUSCULAR HGB CONC 34.3 % (33.0-36.5); MEAN CORPUSCULAR VOLUME 88.4 FL (78-98); MEAN PLATELET VOLUME 10.1 FL (7.4-10.4); MONOCYTES # (AUTO) 0.4 X10'3 (0-0.9); MONOCYTES % (AUTO) 1.2 % (2-12); NEUTROPHILS # (AUTO) 29.2 X10'3 (1.8-7.7); NEUTROPHILS % (AUTO) 94.3 % (42-75); PLATELET COUNT 256 X10'3 (140-440); RED CELL DISTRIBUTION WIDTH 15.8 % (11.5-14.5)
[2017-05-02] MEDS ORDERED: vancomycin/NS 1 GM ADD-VANTAGE 250 ML IV SCH (20:00)
[2017-05-02 20:02] LABS: ABG BASE EXCESS -9.8 mmol/L (-2.0-3.0); ABG HCO3 19.3 mmol/L (22.0-26.0); ABG OXYGEN SATURATION 86.7 % (95-98); ABG PCO2 (T) 64.7 mmHg (35.0-48.0); ABG PH (T) 7.097 (7.350-7.450); ABG PO2 (T) 71.6 mmHg (83-108); FCOHb 0.3 % (0.5-1.5); FMetHb 0.5 % (0.3-1.12); MINUTE VOLUME 11 L/min; PATIENT TEMPERATURE 37.6; PEEP 5 cm H2O; RESPIRATORY RATE 16 b/min; RESPIRATORY RATE (OBSERVED) 23 b/min; TIDAL VOLUME 450 mL; TOTAL HEMOGLOBIN 7.5 G/dl (14.0-18.0)
[2017-05-02 20:04] LABS: INR 2.9 INR; PARTIAL THROMBOPLASTIN TIME 50 SECONDS (22-32); PROTHROMBIN TIME 28.6 SECONDS (9.0-12.0)
[2017-05-02 20:05] LABS: OXYGEN SATURATION (MIXED VEN) 65.2 % (60-80); PO2 MIXED VENOUS (TEMP COR) 43.7 mmHg (35-46)
[2017-05-02] MEDS: hydrocortisone sod succ/PF 100mg/2ml inj. IV SCH (20:08)
[2017-05-02 20:14] LABS: HEMATOCRIT 21.2 % (42.0-52.0)
[2017-05-02 20:24] LABS: PHOSPHORUS 9.6 MG/DL (2.3-4.5)
[2017-05-02] MEDS: dextrose 50%-water 50ml dispensing syringe IV PRN ×2 (20:24→23:46)
[2017-05-02 21:13] LABS: ANISOCYTOSIS 1+; PLATELET ESTIMATE NORMAL; TOTAL CELLS COUNTED 100
[2017-05-02 21:22] LABS: ALBUMIN 1.3 G/DL (3.4-5.0); ALBUMIN/GLOBULIN RATIO 0.5 (1.1-1.5); ALKALINE PHOSPHATASE 159 IU/L (46-116); ANION GAP 19 (8-16); BILIRUBIN,TOTAL 2.3 MG/DL (0.1-1.0); BLOOD UREA NITROGEN 58 MG/DL (7-18); BUN/CREATININE RATIO 17.3 (5.4-32.0); CALCIUM 6.6 MG/DL (8.5-10.1); CHLORIDE 103 MMOL/L (99-107); CREATININE 3.36 MG/DL (0.60-1.10); SODIUM 142 MMOL/L (135-145); TOTAL PROTEIN 3.8 G/DL (6.4-8.2); eGFR 19 ML/MIN
[2017-05-02 21:26] LABS: GLUCOSE 22 MG/DL (70-104)
[2017-05-02 21:43] LABS: ALANINE AMINOTRANSFERASE 4958 U/L (12-78); ASPARTATE AMINO TRANSFERASE 6293 U/L (10-37)
[2017-05-02] MEDS ORDERED: dextrose 5%-water 1,000 ML IV SCH (23:55)
[2017-05-03] VITALS (8 sets, daily range): BP systolic 84–141; BP diastolic 41–48
[2017-05-03 01:13] LABS: BASOPHILS # (AUTO) 0.1 X10'3 (0-0.2); BASOPHILS % (AUTO) 0.2 % (0-1); EOSINOPHILS # (AUTO) 0.4 X10'3 (0-0.9); EOSINOPHILS % (AUTO) 0.5 % (0-6); HEMATOCRIT 25.3 % (42.0-52.0); HEMOGLOBIN 8.9 g/dl (14.0-17.9); LYMPHOCYTES # (AUTO) 0.6 X10'3 (1.1-4.8); LYMPHOCYTES % (AUTO) 0.9 % (21-51); MEAN CORPUSCULAR HEMOGLOBIN 32.3 PG (27.0-31.0); MEAN CORPUSCULAR HGB CONC 35.3 % (33.0-36.5); MEAN CORPUSCULAR VOLUME 91.4 FL (78-98); MONOCYTES % (AUTO) 4.2 % (2-12); NEUTROPHILS # (AUTO) 66.3 X10'3 (1.8-7.7); NEUTROPHILS % (AUTO) 94.2 % (42-75); PLATELET COUNT 308 X10'3 (140-440); RED BLOOD COUNT 2.76 X10'6 (4.70-6.10); RED CELL DISTRIBUTION WIDTH 16.6 % (11.5-14.5)
[2017-05-03 01:21] LABS: INR 3.4 INR; PARTIAL THROMBOPLASTIN TIME 53 SECONDS (22-32); PROTHROMBIN TIME 33.8 SECONDS (9.0-12.0)
[2017-05-03 01:23] LABS: WHITE BLOOD COUNT 70.4 X10'3 (4.5-11.0)
[2017-05-03] MEDS: hydrocortisone sod succ/PF 100mg/2ml inj. IV SCH (01:32)
[2017-05-03 01:35] LABS: ALBUMIN 1.4 G/DL (3.4-5.0); ALBUMIN/GLOBULIN RATIO 0.5 (1.1-1.5); ALKALINE PHOSPHATASE 229 IU/L (46-116); ANION GAP 19 (8-16); BILIRUBIN,TOTAL 2.1 MG/DL (0.1-1.0); BLOOD UREA NITROGEN 60 MG/DL (7-18); BUN/CREATININE RATIO 15.4 (5.4-32.0); CALCIUM 6.6 MG/DL (8.5-10.1); CHLORIDE 102 MMOL/L (99-107); GLUCOSE 85 MG/DL (70-104); MAGNESIUM 2.2 MG/DL (1.5-2.4); POTASSIUM 5.9 MMOL/L (3.5-5.1); SODIUM 139 MMOL/L (135-145); TOTAL PROTEIN 4.1 G/DL (6.4-8.2); eGFR 16 ML/MIN
[2017-05-03 01:42] LABS: PHOSPHORUS 11.5 MG/DL (2.3-4.5)
[2017-05-03 01:49] LABS: ANISOCYTOSIS 1+; TOTAL CELLS COUNTED 100
[2017-05-03 01:52] LABS: PLATELET ESTIMATE NORMAL
[2017-05-03 02:05] LABS: ASPARTATE AMINO TRANSFERASE > 7000 U/L (10-37)
[2017-05-03] MEDS: dextrose 50%-water 50ml dispensing syringe IV PRN (02:09)
[2017-05-03 02:25] LABS: ALANINE AMINOTRANSFERASE 6725 U/L (12-78)
[2017-05-03] MEDS ORDERED: calcium gluconate inj. 1 GM in normal saline 100ml IV soln 90 ML IV ONE (02:35)
[2017-05-03] MEDS ORDERED: sodium chloride inj. 154 MEQ in Dextrose 10%-water IV solution 961.5 ML IV SCH (02:40)
[2017-05-03] MEDS ORDERED: calcium chloride 100 MG/1 ML inj IV ONE (02:40)
[2017-05-03] MEDS: NORepinephrine 8mg/ 250ml NS 250 ML IV SCH ×2 (02:44→06:46)
[2017-05-03] MEDS ORDERED: Dextrose 10%-water IV solution 1,000 ML IV SCH (03:05)
[2017-05-03 03:55] LABS: ABG BASE EXCESS -15.9 mmol/L (-2.0-3.0); ABG HCO3 14.6 mmol/L (22.0-26.0); ABG OXYGEN SATURATION 93.3 % (95-98); ABG PCO2 (T) 61.3 mmHg (35.0-48.0); ABG PH (T) 6.999 (7.350-7.450); ABG PO2 (T) 87.6 mmHg (83-108); FCOHb 0.3 % (0.5-1.5); FMetHb 0.4 % (0.3-1.12); FO2Hb 92.6 % (94-100); MINUTE VOLUME 9 L/min; PATIENT TEMPERATURE 37.8; PEEP 7 cm H2O; RESPIRATORY RATE 18 b/min; RESPIRATORY RATE (OBSERVED) 18 b/min; TIDAL VOLUME 450 mL; TOTAL HEMOGLOBIN 8.5 G/dl (14.0-18.0)
[2017-05-03 04:00] LABS: OXYGEN SATURATION (MIXED VEN) 62.9 % (60-80); PO2 MIXED VENOUS (TEMP COR) 38.6 mmHg (35-46)
[2017-05-03] MEDS ORDERED: sodium bicarbonate (8.4%) 1 mEq/ml syringe IV STA (04:06)
[2017-05-03] MEDS: pantoprazole 40MG/NS 100ML BAG 100 ML IV SCH (04:34)
[2017-05-03] MEDS ORDERED: epiNEPHrine 0.1mg/ml 10ml syringe ONE (07:06)
[2017-05-03] MEDS ORDERED: vancomycin/NS 1 GM ADD-VANTAGE 250 ML X 1 DOSE IV SCH (14:00)
[2017-05-03] MEDS ORDERED: lactobacillus rhamnosus 10,000 MMU CELLS/CAPSULE PO SCH (17:30)
[2017-05-06] MEDS ORDERED: VANCOMYCIN LEVEL IV NR (13:30)
[2017-05-07] MEDS ORDERED: methylnaltrexone br 12mg/0.6ml inj***SubQ only SQ SCH (08:00)
== END 2017-05-03 14:11 | disposition expired | DRG 871 ==
LOC: ER 07:28 → ED HOLD 08:28 → CICU 2S 09:19
PROVIDERS: ADMIT Internal Medicine Critical Care Medicine; ATTEND Internal Medicine Critical Care Medicine
PROC: 5A1935Z Respiratory Ventilation, Less than 24 Consecutive Hours (ICD-10-PCS; principal; 2017-05-02)
PROC: 0BH17EZ Insertion of Endotracheal Airway into Trachea, Via Natural or Artificial Opening (ICD-10-PCS; 2017-05-02)
PROC: 30233N1 Transfusion of Nonautologous Red Blood Cells into Peripheral Vein, Percutaneous Approach (ICD-10-PCS; 2017-05-02)
PROC: 02HV33Z Insertion of Infusion Device into Superior Vena Cava, Percutaneous Approach (ICD-10-PCS; 2017-05-02)
DX: A41.9 Sepsis, unspecified organism (principal); J96.21 Acute and chronic respiratory failure with hypoxia; R57.8 Other shock; R65.21 Severe sepsis with septic shock; K66.1 Hemoperitoneum; I82.403 Acute embolism and thrombosis of unspecified deep veins of lower extremity, bilateral; D68.9 Coagulation defect, unspecified; I82.623 Acute embolism and thrombosis of deep veins of upper extremity, bilateral; I80.9 Phlebitis and thrombophlebitis of unspecified site; I46.9 Cardiac arrest, cause unspecified; J44.9 Chronic obstructive pulmonary disease, unspecified; D64.9 Anemia, unspecified; K42.9 Umbilical hernia without obstruction or gangrene; L89.90 Pressure ulcer of unspecified site, unspecified stage; R58 Hemorrhage, not elsewhere classified; Z91.048 Other nonmedicinal substance allergy status; Z79.01 Long term (current) use of anticoagulants; Z79.899 Other long term (current) drug therapy; Z87.891 Personal history of nicotine dependence
CPT/HCPCS: 36415; 36600; 71045; 71250; 74018; 74176; 80053; 82803; 82810; 82948; 83605; 83690; 83735; 83880; 84100; 84145; 84439; 84443; 84484; 85018; 85025; 85027; 85384; 85610; 85730; 86885; 86900; 86901; 86920; 87040; 87070; 94002; 94760; 96365; 96375; 99291; A4315; A6212; A6213; C1751; C9113; C9132; J0171; J0330; J0610; J1720; J2250; J2405; J2543; J3010; J3370; J3490; J7030; J7070; J7131; P9016